=== PATIENT | male | born 1935 | race Caucasian/White ===

== ENCOUNTER 2021-06-20 16:44 | Outpatient (CLI) | payer MEDICARE, SELFPAY ==
--- NOTE | 2021-06-20 08:00 | PROSB_PTH ---
PATIENT: LOUIS KELLOGG [facility] U#:[id number] AGE/SX: 85/M ROOM: RE06/20/[address]: Dr. Zain Bonner MD : 1935 BED: DIS: 06/20/2021 SPEC #: [id number] RECD: 06/20/21 16:36 STATUS: SUHAS ROCHA #: [id number] LORNA: 06/20/21 08:[address]: Zain Bonner DEPT: SURGICAL PATHOLOGY RECD BY: Chen Ribera ENTERED: 06/21/21 13:53 SP TYPE: PROST BX OTHR DR: Dr. Jose Nicolas MD Tissues: A - Prostate, NOS B - Prostate, NOS Procedures: Surgery Specimen Level IV HEADER OPERATION: Prostate biopsy PRE-OP DIAGNOSIS: Elevated PSA TISSUE SUBMITTED: A ? Prostate biopsy #1, B - Prostate biopsy #2 MICROSCOPIC DIAGNOSIS A. Prostate #1, core biopsy: Adenocarcinoma. Fabian grade: 9 (5+4) Cores involved: 1 out of 1 Tissue involved: >95% Greatest tumor length: 11 millimeters B. Prostate #1, core biopsy: Adenocarcinoma. Corinth grade: 9 (5+4) Cores involved: 2 out of 2 Tissue involved: >95% Greatest tumor length: 13.5 millimeters AM: 06/22/2021 MICROSCOPIC DESCRIPTION Slides are reviewed. GROSS DESCRIPTION A - Received in fixative is one container labeled with the patient's name and designated prostate biopsy #1. The specimen consists of one elongated fragment of light escobar-white soft tissue measuring 1.5 cm in length and 0.1 cm in diameter. The specimen is totally submitted in one cassette. B - Received in fixative is one container labeled with the patient's name and designated prostate biopsy #2. The specimen consists of two elongated fragments of light escobar-white soft tissue each measuring 1.5 cm in length and 0.1 cm in diameter. The specimen is totally submitted in one cassette. / AM:carmine 06/21/2021 TC:0 CPT: 27097 x2
--- NOTE | 2021-06-20 08:00 | PROSB_PTH ---
PATIENT: LOUIS KELLOGG [facility] U#:[id number] AGE/SX: 85/M ROOM: RE06/20/[address]: Dr. Zain Bonner MD : 1935 BED: DIS: 06/20/2021 SPEC #: [id number] RECD: 06/20/21 16:36 STATUS: SUHAS ROCHA #: [id number] LORNA: 06/20/21 08:[address]: Zain Bonner DEPT: SURGICAL PATHOLOGY RECD BY: Chen Ribera ENTERED: 06/21/21 13:53 SP TYPE: PROST BX OTHR DR: Dr. Jose Nicolas MD Tissues: A - Prostate, NOS B - Prostate, NOS Procedures: Surgery Specimen Level IV HEADER OPERATION: Prostate biopsy PRE-OP DIAGNOSIS: Elevated PSA TISSUE SUBMITTED: A ? Prostate biopsy #1, B - Prostate biopsy #2 MICROSCOPIC DIAGNOSIS A. Prostate #1, core biopsy: Adenocarcinoma. Fabian grade: 9 (5+4) Cores involved: 1 out of 1 Tissue involved: >95% Greatest tumor length: 11 millimeters B. Prostate #2, core biopsy: Adenocarcinoma. Hermann grade: 9 (5+4) Cores involved: 2 out of 2 Tissue involved: >95% Greatest tumor length: 13.5 millimeters AM:carmine 06/22/2021 AM:carmine 08/18/2021 MICROSCOPIC DESCRIPTION Slides are reviewed. GROSS DESCRIPTION A - Received in fixative is one container labeled with the patient's name and designated prostate biopsy #1. The specimen consists of one elongated fragment of light escobar-white soft tissue measuring 1.5 cm in length and 0.1 cm in diameter. The specimen is totally submitted in one cassette. B - Received in fixative is one container labeled with the patient's name and designated prostate biopsy #2. The specimen consists of two elongated fragments of light escobar-white soft tissue each measuring 1.5 cm in length and 0.1 cm in diameter. The specimen is totally submitted in one cassette. / AM:carmine 06/21/2021 TC:0 [facility]: [id number] x2
== END 2021-06-20 23:59 | disposition home or self-care (01) ==
LOC: LABSPEC 16:45
PROVIDERS: PCP Family Medicine; Referring Provider Urology; Visit Provider Urology
DX: R97.20 Elevated prostate specific antigen [PSA] (principal)
CPT/HCPCS: 88305

== ENCOUNTER 2021-07-25 13:29 | Outpatient (CLI) | payer MEDICARE, SELFPAY ==
--- NOTE | 2021-07-25 13:35 | CT_ITS ---
STUDY: CT Abdomen And Pelvis W/ Contrast Injection 07/25/2021 8:35 PM REASON FOR EXAM: Male, 85 years old. Abdominal pain MALIGNANT NEOPLASM OF PROSTATE Individualized dose optimization techniques were used for this CT. COMPARISON: None. TECHNIQUE: CT Abdomen And Pelvis W/ Contrast Injection IV 100mL Isovue-300 FINDINGS: There are atherosclerotic calcifications of visualized coronary arteries. The visualized portions of the heart are within normal limits. Multiple median sternotomy wires are noted consistent for cardiac surgery. 4.5 mm left lower lobe subpleural nodules. Lung RADS 2. Normal liver. There are multiple gallstones. Normal spleen. There is diffuse atrophy of the pancreas. There is a small, circumscribed, smooth, low attenuation right adrenal mass, consistent with an adrenal adenoma. Normal left adrenal gland. Non obstructive 3mm right renal parenchymal stones. There are hypodensities in the left kidney. These are consistent for cysts. No follow up required. There are hypodensities in the right kidney. These are consistent for cysts. No follow up required. Normal visualized stomach. Normal small intestine. There are multiple colonic diverticula consistent with diverticulosis. There is non-visualization of the appendix. There are calcifications of the abdominal aorta. This is consistent for atherosclerotic disease. There is no abdominal aortic aneurysm. Normal inferior vena cava. Subcentimeter mesenteric lymph nodes. Multiple calculi layering in the base of the urinary bladder. There are prostatic calcifications. Multiple midline ventral hernias containing fat. There are diffuse degenerative changes of the visualized lumbar spine. IMPRESSION: (NOT LISTED IN ORDER OF SIGNIFICANCE) Multiple calculi layering in the base of the urinary bladder. There are multiple colonic diverticula consistent with diverticulosis. Nonobstructive right renal stones. There are multiple gallstones. Other findings as above. Electronically Signed: Timo Conti MD at 20:39 EDT , CT/Abdomen/Pelvis W IV Cont ONLY
[2021-07-25 14:11] LABS: CREATININE FINGERSTICK 0.9 mg/dL (0.70-1.30); EGFR FINGERSTICK > 60.0000 mL/min (>60)
== END 2021-07-25 23:59 | disposition home or self-care (01) ==
LOC: CT 13:30
PROVIDERS: PCP Family Medicine; Visit Provider Urology
DX: C61 Malignant neoplasm of prostate (principal)
CPT/HCPCS: 74177; Q9967

== ENCOUNTER → 2021-07-29 | Outpatient (CLI) | payer MEDICARE, SELFPAY ==
--- NOTE | 2021-07-29 08:38 | NM_ITS ---
CLINICAL: Male, 85 years old. PROSTATE CA, New Diagnosis WHOLE BODY NUCLEAR BONE SCAN TECHNIQUE: Following the IV administration of 25.5 mCi of Tc MDP, whole body bone imaging was performed with a gamma camera following a three hour delay. COMPARISON STUDIES : NM - None. CR - Not available for review at this time. CT - CT 07/25/2021 MR - Not available for review at this time. US - Not available for review at this time. FINDINGS: Numerous abnormal foci of isotope activity involving the base of the cervical spine, multiple ribs, multiple thoracic vertebral bodies, multiple lumbar vertebral bodies and bilateral pelvis (right more than left). Focal activity overlying the upper sternum is best seen on anterior projection. Degenerative activity of the bilateral acromioclavicular joints. Injection related artifact of the left antecubital fossa. There is otherwise normal concentration of radiopharmaceutical throughout the axial and appendicular skeletal system without either a focal decrease or increase in uptake. NM/Bone Scan Whole Body IMPRESSION: 1. Multifocal activity involving cervical, thoracic/lumbar spine, pelvis, sternal and ribs compatible with osseous metastasis. Electronically Signed: Phong Johnson MD ([place]) at 12:42 EDT Reading Location ID and State: / [place] , Service support ,
== END | disposition home or self-care (01) ==
LOC: NM 08:31
PROVIDERS: PCP Family Medicine; Referring Provider Urology; Visit Provider Urology
DX: C61 Malignant neoplasm of prostate (principal)
CPT/HCPCS: 78306; A9503

== ENCOUNTER 2021-08-17 10:26 | Observation (INO) | payer MEDICARE, SELFPAY ==
--- NOTE | 2021-08-16 10:49 | EKG12_ITS ---
Test Reason : PRE-OP Blood Pressure : / mmHG Vent. Rate : 062 BPM Atrial Rate : 062 BPM P-R Int : 130 ms QRS Dur : 128 ms QT Int : 444 ms P-R-T Axes : -01 048 046 degrees QTc Int : 450 ms Normal sinus rhythm Right bundle branch block Abnormal ECG Confirmed by SEGUN ALARCON, VIVIENNE ([id number]), features editor MARIA ELENA FORRESTER ([id number]) on 08/17/2021 11:13:50 AM Referred By: Zain Bonner Confirmed By:VIVIENNE CAST MD
[2021-08-16 11:37] LABS: Hematocrit 38.6 % (40-54); Hemoglobin 12.4 g/dL (13.0-16.5); Mean Corp Hgb Conc 32.1 g/dL (32-36); Mean Corpuscular Hgb 31.2 pg (27.0-32.0); Mean Platelet Vol. 10.1 fl (6.2-12.0); Platelet Count 182 K/mm3 (150-450); RBC Distribution Width CV 14.3 % (11.6-14.6); RBC Distribution Width SD 50.3 fl (35.1-43.9); Red Blood Count 3.98 M/mm3 (4.6-6.2); White Blood Count 10.1 K/mm3 (4.4-11.0)
[2021-08-16 13:17] LABS: Anion Gap 8 (5-15); BUN 34 mg/dL (7-18); Calcium,Total 9.6 mg/dL (8.5-10.1); Chloride 104 mmol/L (98-107); Creatinine, Serum 1.26 mg/dL (0.70-1.30); EST Glomerular Filtration Rate 58 mL/min (>60); Est Glom Filt Rate - Afr Amer 70 mL/min (>60); Glucose 137 mg/dL (74-106); Potassium 4.1 mmol/L (3.5-5.1); Sodium Level 138 mmol/L (136-145)
[2021-08-17] VITALS (11 sets, daily range): BP systolic 115–150; BP diastolic 39–70; PULSE 44–85; RESP 14–18; TEMP 35.8–36.8; O2SAT 94–98; BMI 33.4; BMI 33.9
--- NOTE | 2021-08-17 | PROS_PTH ---
PATIENT: LOUIS KELLOGG LOC: [facility] U#:[id number] AGE/SX: 85/M [place] [facility]17[place]: Dr. Zain Bonner MD : 1935 BED: 1 DIS: 08/18/2021 SPEC #: [id number] RECD: 08/17/21 13:00 STATUS: SUHAS ROCHA #: [id number] LORNA: 08/17/21 00:[address]: Zain Bonner DEPT: SURGICAL PATHOLOGY RECD BY: Jerrod Bowman ENTERED: 08/17/21 13:01 SP TYPE: TURP OTHR DR: Dr. Jose Nicolas MD Tissues: Prostate, NOS Procedures: Surgery Specimen Level IV HEADER OPERATION: Cysto, TUR prostate, Olympus, litholapaxy PRE-OP DIAGNOSIS: Malignant neoplasm of prostate; calculus of bladder TISSUE SUBMITTED: Prostate chips MICROSCOPIC DIAGNOSIS Prostate chips, transurethral resection: Prostatic adenocarcinoma. Fragments of stone (gross only). See cancer summary in the comment section. SJ:rg 08/18/2021 COMMENT PROSTATE CANCER (TUR) SUMMARY: Procedure - transurethral resection of prostate (TURP) Histologic type ? acinar adenocarcinoma Histologic grade (Fabian Pattern) ? Grade group 4 (Winfield score 3+5=8) Tumor Quantitation (TUR specimens) ? estimated percentage of prostatic tissue involved by tumor ~10%. Periprostatic fat invasion ? not applicable Seminal vesicle invasion ? not applicable Lymphvascular invasion ? not identified Perineural invasion ? not identified Additional pathologic findings ? benign prostatic hyperplasia, glandular and stromal types. - Chronic inflammation and basal cell hyperplasia. Treatment effect ? no known presurgical therapy. The above summary is in compliance with [employer] [place] [employer] (CAP) Cancer Protocols Checklist and [place] [employer] Committee on Cancer (AJCC), Staging Manual, 8th Ed. Please make reference to previous specimen ([id number]) prostate #1 and #2, core biopsies with diagnosis of adenocarcinoma. Case has been reviewed in consultation with Dr. Chapman who concurs with the above diagnosis. IDC:AM MICROSCOPIC DESCRIPTION Slides are reviewed. GROSS DESCRIPTION Received is one container labeled with the patient's name and designated prostate chips. The specimen consists of multiple irregular fragments of pink-escobar, rubbery, soft tissue that in aggregate weigh 5.6 gm and measure in aggregate 4 x 4 x 1 cm. A few fragments of brownish-black stones are also noted measuring in aggregate 1.5 x 1.5 x 0.3 cm and 0.1 to 0.7 cm in greatest dimension. The entire soft tissue is submitted in six cassettes. / TYLER:carmine 08/17/2021 TC:0 CPT: 05451
[2021-08-17] MEDS: Lactated Ringers 1,000 ML 15 ML IV (08:40)
[2021-08-17 09:06] LABS: Bedside Glucose 149 mg/dL (74-106)
[2021-08-17] MEDS: Cefazolin 2 GM in 0.9% Normal Saline 100 ML IV (09:35)
--- NOTE | 2021-08-17 10:28 | PCM.HP.STD ---
HPI - General HPI Narrative LOUIS KELLOGG, is a 85 M who presents for transurethral resection of prostate and removal of bladder stones large PFSH Medical History (Updated 08/11/21 @ 14:10 by Harika Suggs) Back pain BiPAP (biphasic positive airway pressure) dependence CAD (coronary artery disease) Cancer Cardiology follow-up encounter COPD (chronic obstructive pulmonary disease) Diabetes Difficulty swallowing Excessive bleeding Former smoker Gastric reflux High cholesterol History of echocardiogram History of stress test Hypertension Shortness of breath on exertion Sleep apnea Wears dentures Wears glasses Home Medications acetaminophen [Tylenol] 650 mg PO Q4H PRN 08/11/21 [History Last Taken 08/16/21] albuterol sulfate 2.5 mg CONTINUOUS NEBULIZATION PRN PRN 08/11/21 [History Last Taken 08/16/21] aspirin 81 mg PO DAILY 08/11/21 [History Last Taken 08/09/21] atorvastatin 80 mg PO QHS 08/11/21 [History Last Taken 08/16/21] cholecalciferol (vitamin D3) [Vitamin D3] 25 mcg PO DAILY 08/11/21 [History Last Taken 08/16/21] clopidogrel 75 mg PO DAILY 08/11/21 [History Last Taken 08/16/21] hydrochlorothiazide 25 mg PO DAILY 08/11/21 [History Last Taken 08/16/21] isosorbide mononitrate 30 mg PO DAILY 08/11/21 [History Last Taken 08/17/21] losartan 100 mg PO DAILY 08/11/21 [History Last Taken 08/17/21] lutein 20 mg PO DAILY 08/11/21 [History Last Taken 08/16/21] metoprolol succinate 50 mg PO DAILY 08/11/21 [History Last Taken 08/16/21] multivitamin 1 tab PO DAILY 08/11/21 [History Last Taken 08/16/21] omega-3 fatty acids 1,000 mg PO BID 08/11/21 [History Last Taken 08/16/21] ciprofloxacin HCl [Cipro] 500 mg PO BID #10 tab 08/17/21 [Rx Last Taken Unknown] Allergy/AdvReac Type Severity Reaction Status Date / Time No Known Allergies Allergy Verified 08/17/21 08:05 Surgical History (Updated 08/11/21 @ 14:10 by Harika Suggs) History of AAA (abdominal aortic aneurysm) repair History of cardiac catheterization History of carotid endarterectomy History of esophagogastroduodenoscopy (EGD) History of quadruple bypass Hx of colonoscopy Social History Smoking Status: Former smoker Vital Signs Vital Signs Vital Signs: 08/17/21 08:07 Temperature 97.4 F L Temperature Source Temporal Pulse Rate 59 L Respiratory Rate 18 Respiratory Pattern Normal Blood Pressure 127/68 H Blood Pressure Mean 87 Blood Pressure Source Monitor Blood Pressure Position Semi-Fowlers Blood Pressure Location Left Arm Pulse Ox 96 Oxygen Delivery Method Room Air Weight Weight: 101.2 kg Body Mass Index (BMI) 33.4 Results Lab / Micro Data Result Diagrams: 08/16/21 11:13 08/16/21 11:13 Labs: Laboratory Results - last 24 hr 08/16/21 11:13: WBC 10.1, RBC 3.98 L, Hgb 12.4 L, Hct 38.6 L, MCV 97.0 H, MCH 31.2, MCHC 32.1, RDW Std Deviation 50.3 H, RDW Coeff of Isidoro 14.3, Plt Count 182, MPV 10.1 08/16/21 11:13: Sodium 138, Potassium 4.1, Chloride 104, Carbon Dioxide 26.0, Anion Gap 8, BUN 34 H, Creatinine 1.26, Est GFR (MDRD) Af Amer 70, Est GFR (MDRD) Non-Af 58 L, BUN/Creatinine Ratio 27.0 H, Glucose 137 H, Calcium 9.6 08/17/21 08:03: POC Glucose 149 H Micro: Microbiology 08/16/21 10:54 Interface Orders SARS-CoV-2 Antigen (Rapid) - Final
--- NOTE | 2021-08-17 10:28 | PCM.DC ---
Discharge Instructions Diet Discharge Diet: No restrictions Activity Discharge Activity: Return to Normal Activity and May Not Drive (while taking narcotic pain medications.) Dressing / Incision Call your doctor if you observe: Fever of 101 or Higher Follow Up Care Please Follow Up With: Zain Bonner MD When: Call [phone] for an appointment Test Results: Test results from this visit will be discussed in further detail at your follow-up appointment, if applicable. Discharge Plan Admission Primary Reason for Your Visit: turmimi Attending Provider: Zain Bonner Primary Care Provider: Jose Nicolas Instructions Patient Instructions: JOYCE Home Recovery Discharge Orders/Prescriptions Prescriptions: New ciprofloxacin HCl [Cipro] 500 mg tablet 500 mg PO BID Qty: 10 RF: 0 Continued multivitamin Tablet 1 tab PO DAILY RF: 0 atorvastatin 80 mg tablet 80 mg PO QHS RF: 0 albuterol sulfate 2.5 mg /3 mL (0.083 %) solution for nebulization 2.5 mg continuous nebulization PRN PRN (Reason: COPD) RF: 0 metoprolol succinate 50 mg tablet extended release 24 hr 50 mg PO DAILY RF: 0 isosorbide mononitrate 60 mg Tablet Extended Release 24 Hr 30 mg PO DAILY RF: 0 hydrochlorothiazide 25 mg tablet 25 mg PO DAILY RF: 0 losartan 100 mg tablet 100 mg PO DAILY RF: 0 omega-3 fatty acids Capsule 1,000 mg PO BID RF: 0 lutein 20 mg Capsule 20 mg PO DAILY RF: 0 acetaminophen [Tylenol] 325 mg Capsule 650 mg PO Q4H PRN (Reason: Pain) RF: 0 cholecalciferol (vitamin D3) [Vitamin D3] 25 mcg (1,000 unit) Tablet 25 mcg PO DAILY RF: 0 aspirin 81 mg Capsule 81 mg PO DAILY RF: 0 Held clopidogrel 75 mg tablet 75 mg PO DAILY RF: 0 Hold Instructions: Resume on 08/31/21. Discontinued tamsulosin 0.4 mg capsule 0.4 mg PO DAILY RF: 0 Referrals / Follow Up: Zain Bonner MD [STAFF PHYSICIAN] - Jose Nicolas MD [Primary Care Provider] - Disposition Disposition (needs filled in before D/C Order can be placed): Home, Self Care
--- NOTE | 2021-08-17 10:29 | PCM.OPRPT ---
Report of Operation Date of Procedure: 08/17/21 Pre-Operative Diagnosis: BPH with obstruction prostate cancer and large bladder stones Post-Operative Diagnosis: Same Surgery/Procedure Performed:: Transurethral section of prostate and cystolitholapaxy of large bladder stones Description of Surgical Findings:: In the preoperative setting I discussed with the patient how the surgery would be done with expect afterwards. We discussed how a prostate resection is done and we discussed the risk of the surgery including, bleeding, infection, retrograde ejaculation, changes with ejaculation or intercourse,. We discussed the possibility that the resection of the prostate may not alleviate his urinary symptoms. We discussed the small risk of developing scar tissue along the urethral channel and strictures. We also discussed the chance of the prostate could grow back and he may need further surgery or treatment in the future for prostate problems. The urethra and genitals were prepped and draped in usual sterile fashion. Went into the bladder using a 24 [place] cystoscope. We used the laser bridge through the scope for continuous irrigation. And the stone in the bladder was trapped against the back wall. The stone measured larger than 2,5cm in total size. The stone was then evacuated from the bladder in little pieces were evacuated on the bladder. After all the stones were removed then the scope was removed there was minimal bleeding. Went into the bladder using the visual obturator with a resectoscope. Once inside the bladder identified the right and left ureteral orifice. I then identified the prostate and the anatomy of the prostate. I marked out the area of the sphincter and the verumontanum was identified. I then proceeded with the prostate resection first resected the median lobe. And then resected the right lobe of the prostate. Then to resect the left lobe of the prostate. I then resected the apical tissue of the prostate. This was a complete resection of all obstructive tissue to improve voiding and relieve obstruction. I then made sure that there was no injury to the sphincter or the verumontanum was still intact. At the end of the resection all the chips were Ellik out of the bladder. I then identified the left and right ureteral orifice and these were confirmed to be in good position and effluxing and not injured. The resectoscope was removed, a 22 [place] catheter was placed into the bladder on continuous irrigation. And the urine was fairly light pink color and draining normally. He was taken back to the PACU in good condition. CPT 31913 CPT 85885 Surgeon: kia Type of Anesthesia: General Drains: 22fr [address] way Admit VTE Documentation VTE Present on Admission: No VTE Mechan Device Prophylaxis: SCD's VTE Pharm Prophylaxis ordered?: No
[2021-08-17] MEDS: Atorvastatin Calcium 80 MG Tablet PO (21:21)
[2021-08-17] MEDS: Omega-3 Acid Ethyl Esters 1 GM Capsule PO (21:21)
[2021-08-18 04:01] VITALS: BP 113/73; PULSE 60; RESP 18; TEMP 37.1; O2SAT 94
[2021-08-18 08:34] VITALS: BP 126/48; PULSE 72; RESP 18; TEMP 36.8; O2SAT 92
[2021-08-18] MEDS: Omega-3 Acid Ethyl Esters 1 GM Capsule PO (08:38)
[2021-08-18] MEDS: Multivitamins,Therapeutic Tablet 1 TABLET PO (08:38)
[2021-08-18] MEDS: hydroCHLOROthiazide 25 MG Tablet PO (08:38)
[2021-08-18] MEDS: Cholecalciferol (VIT D3) 25 MCG TABLET (1,000 UNITS) PO (08:38)
[2021-08-18] MEDS: Isosorbide Mononitrate 30 MG Tablet PO (08:39)
--- NOTE | 2021-08-18 10:35 | PHA.DC.MC ---
Pharmacy Service has performed discharge medication reconciliation and counseling for this patient. The patient was counseled on the following discharge medications and changes in medications for homegoing were reviewed. 1. CIPRO The Reason for Use, instructions for use, and potential side effects were reviewed for all new medications. The patient's questions regarding all of their medications were answered. The patient demonstrated some understanding but would benefit from further education and reinforcement. Home Medications acetaminophen [Tylenol] 650 mg PO Q4H PRN 08/11/21 albuterol sulfate 2.5 mg CONTINUOUS NEBULIZATION PRN PRN 08/11/21 aspirin 81 mg PO DAILY 08/11/21 atorvastatin 80 mg PO QHS 08/11/21 cholecalciferol (vitamin D3) [Vitamin D3] 25 mcg PO DAILY 08/11/21 clopidogrel 75 mg PO DAILY 08/11/21 hydrochlorothiazide 25 mg PO DAILY 08/11/21 isosorbide mononitrate 30 mg PO DAILY 08/11/21 losartan 100 mg PO DAILY 08/11/21 lutein 20 mg PO DAILY 08/11/21 metoprolol succinate 50 mg PO DAILY 08/11/21 multivitamin 1 tab PO DAILY 08/11/21 omega-3 fatty acids 1,000 mg PO BID 08/11/21 ciprofloxacin HCl [Cipro] 500 mg PO BID #10 tab 08/17/21 The patient's discharge medication list was reviewed for discrepancies and discrepancies were resolved.
[2021-08-18 10:54] VITALS: BP 119/68; PULSE 90
[2021-08-18] MEDS: Losartan Potassium 100 MG Tablet PO (10:55)
[2021-08-18 13:00] VITALS: BP 124/72; PULSE 86; RESP 18; TEMP 36.7; O2SAT 96
== END 2021-08-18 13:00 | disposition home or self-care (01) ==
LOC: SDC 10:32 → MS3 10:32
PROVIDERS: Anesthesiology; Admitting Provider Urology; PCP Family Medicine; Referring Provider Urology; Visit Provider Urology
PROC: (CPT 52601; principal; 2021-08-17 09:35)
DX: N40.1 Benign prostatic hyperplasia with lower urinary tract symptoms (principal); J44.9 Chronic obstructive pulmonary disease, unspecified; C61 Malignant neoplasm of prostate; E11.9 Type 2 diabetes mellitus without complications; I25.10 Atherosclerotic heart disease of native coronary artery without angina pectoris; I10 Essential (primary) hypertension; E78.00 Pure hypercholesterolemia, unspecified; N13.8 Other obstructive and reflux uropathy; Z79.899 Other long term (current) drug therapy; Z87.891 Personal history of nicotine dependence; Z79.02 Long term (current) use of antithrombotics/antiplatelets; Z79.82 Long term (current) use of aspirin; G47.30 Sleep apnea, unspecified; R13.10 Dysphagia, unspecified; K21.9 Gastro-esophageal reflux disease without esophagitis; Z95.1 Presence of aortocoronary bypass graft; R06.02 Shortness of breath; N21.0 Calculus in bladder
CPT/HCPCS: 52601; 52318; 00914; 36415; 80048; 82962; 85027; 87426; 88305; 93005; 99218; C9803; J7120; G0378; J2405

== ENCOUNTER → 2022-03-13 | Outpatient (CLI) | payer MEDICARE, SELFPAY ==
[2022-03-13 11:50] LABS: PSA,Total- Diagnostic 0.92 ng/mL (0.0-4.0)
== END | disposition home or self-care (01) ==
LOC: LAB 09:35
PROVIDERS: PCP Family Medicine; Referring Provider Registered Nurse; Visit Provider Registered Nurse
DX: C61 Malignant neoplasm of prostate (principal)
CPT/HCPCS: 36415; 84153

== ENCOUNTER → 2022-06-15 | Outpatient (CLI) | payer MEDICARE, SELFPAY | END | disposition home or self-care (01) | LOC: LAB 09:41 | PROVIDERS: PCP Family Medicine; Visit Provider Urology | DX: C61 Malignant neoplasm of prostate (principal) | CPT/HCPCS: 36415; 84153 ==